=== PATIENT | male | born 1975 | race African-American/Black ===

== ENCOUNTER 2017-09-03 09:33 | Emergency (ER) | payer SELFPAY ==
--- NOTE | 2017-09-03 10:42 | Emergency Department Report ---
ED ENT HPI - General Chief complaint: Earache Stated complaint: FOREIGN BODY LEFT EAR Time Seen by Provider: 09/03/17 10:27 Source: patient Mode of arrival: Ambulatory Limitations: No Limitations - History of Present Illness Initial comments: 42-year-old male past medical history none presents with complaint of one week of left ear pain. Patient states he felt an insect go into his ear last week. Has been complaining of persistent pain in his left ear since. No fever or chills reported. Slight decreased hearing in left ear reported. No purulent discharge reported. Patient states he has been picking at his ear for nearly a week. MD complaint: ear pain, foreign body Onset/Timin -: week(s) Location: L ear Severity: moderate Severity scale (0 -10): 7 Quality: aching Worsens with: none - Related Data Previous Rx's Medication Instructions Recorded Last Taken Type Acetaminophen/Codeine [Tylenol 1 tab PO Q6H PRN #15 tab 09/03/17 Unknown Rx /Codeine # 3 tab] Amoxicillin/K Clav Tab [Augmentin 1 tab PO Q12HR #14 tab 09/03/17 Unknown Rx 875 mg] Ibuprofen [Motrin] 800 mg PO Q8HR PRN #20 tablet 09/03/17 Unknown Rx Neomy/Polymyx B/Hc (Otic) Soln 4 drops OTIC TID #1 bottle 09/03/17 Unknown Rx [Cortisporin (Otic) Soln] Allergies Allergy/AdvReac Type Severity Reaction Status Date / Time No Known Allergies Allergy Unverified 09/03/17 09:42 ED Dental HPI - General Chief complaint: Earache Stated complaint: FOREIGN BODY LEFT EAR Time Seen by Provider: 09/03/17 10:27 Source: patient Mode of arrival: Ambulatory Limitations: No Limitations - Related Data Previous Rx's Medication Instructions Recorded Last Taken Type Acetaminophen/Codeine [Tylenol 1 tab PO Q6H PRN #15 tab 09/03/17 Unknown Rx /Codeine # 3 tab] Amoxicillin/K Clav Tab [Augmentin 1 tab PO Q12HR #14 tab 09/03/17 Unknown Rx 875 mg] Ibuprofen [Motrin] 800 mg PO Q8HR PRN #20 tablet 09/03/17 Unknown Rx Neomy/Polymyx B/Hc (Otic) Soln 4 drops OTIC TID #1 bottle 09/03/17 Unknown Rx [Cortisporin (Otic) Soln] Allergies Allergy/AdvReac Type Severity Reaction Status Date / Time No Known Allergies Allergy Unverified 09/03/17 09:42 ED Review of Systems ROS: Stated complaint: FOREIGN BODY LEFT EAR Other details as noted in HPI Constitutional: denies: chills, fever Eyes: denies: eye pain, eye discharge, vision change ENT: ear pain. denies: throat pain Respiratory: denies: cough, shortness of breath, wheezing Cardiovascular: denies: chest pain, palpitations Endocrine: no symptoms reported Gastrointestinal: denies: abdominal pain, nausea, diarrhea Genitourinary: denies: urgency, dysuria Musculoskeletal: denies: back pain, joint swelling, arthralgia Skin: denies: rash, lesions Neurological: denies: headache, weakness, paresthesias Psychiatric: denies: anxiety, depression Hematological/Lymphatic: denies: easy bleeding, easy bruising ED Past Medical Hx - Past Medical History Previous Medical History?: No - Surgical History Past Surgical History?: No - Social History Smoking Status: Never Smoker Substance Use Type: None - Medications Home Medications: Home Medications Medication Instructions Recorded Confirmed Last Taken Type Acetaminophen/Codeine [Tylenol 1 tab PO Q6H PRN #15 tab 09/03/17 Unknown Rx /Codeine # 3 tab] Amoxicillin/K Clav Tab [Augmentin 1 tab PO Q12HR #14 tab 09/03/17 Unknown Rx 875 mg] Ibuprofen [Motrin] 800 mg PO Q8HR PRN #20 tablet 09/03/17 Unknown Rx Neomy/Polymyx B/Hc (Otic) Soln 4 drops OTIC TID #1 bottle 09/03/17 Unknown Rx [Cortisporin (Otic) Soln] ED Physical Exam - General Limitations: No Limitations General appearance: alert, in no apparent distress - Head Head exam: Present: atraumatic, normocephalic - Eye Eye exam: Present: normal appearance - ENT ENT exam: Present: mucous membranes moist - Expanded ENT Exam Expanded TM/Canal exam: Erythema: Left TM (partial obstruction of left ear canal on inspection. Visualized insect-like or foreign body. Significant swelling of external ear canal are ear canal is patent. No clinical mastoiditis on exam), Bulging: Left TM, Effusion: Left TM, Loss of Landmarks: Left TM, Foreign Body: Left TM, Canal Discharge: Left TM, Canal Tenderness: Left TM - Neck Neck exam: Present: normal inspection - Respiratory Respiratory exam: Present: normal lung sounds bilaterally. Absent: respiratory distress - Cardiovascular Cardiovascular Exam: Present: regular rate, normal rhythm. Absent: systolic murmur, diastolic murmur, rubs, gallop - GI/Abdominal GI/Abdominal exam: Present: soft, normal bowel sounds - Rectal Rectal exam: Present: deferred - Extremities Exam Extremities exam: Present: normal inspection - Back Exam Back exam: Present: normal inspection - Neurological Exam Neurological exam: Present: alert, oriented X3, CN II-XII intact, normal gait - Psychiatric Psychiatric exam: Present: normal affect, normal mood - Skin Skin exam: Present: warm, dry, intact, normal color. Absent: rash ED Course Vital Signs 09/03/17 09:42 Temperature 97.7 F Pulse Rate 76 Respiratory 18 Rate Blood Pressure 133/89 O2 Sat by Pulse 96 Oximetry ED Medical Decision Making - Medical Decision Making A/P: Otitis media, otitis externa, foreign body left ear insect 1-as foreign body is directly overlying left eardrum is to deep for me to remove at this time. Has been an left ear for over one week as per patient. No clinical signs of mastoiditis at this time. Patient's hearing is still intact. 2-I informed patient it is imperative that he follow up with [facility]. Patient stated that he would do so. 3-Corticosporin topical, Augmentin 10 day course, Motrin when necessary 4-patient provided with multiple ENT referrals [email or web address] Critical care attestation.: If time is entered above; I have spent that time in minutes in the direct care of this critically ill patient, excluding procedure time. ED Disposition Clinical Impression: Otitis media Qualifiers: Otitis media type: suppurative Chronicity: acute Laterality: left Recurrence: not specified as recurrent Spontaneous tympanic membrane rupture: without spontaneous rupture Qualified Code(s): H66.002 - Acute suppurative otitis media without spontaneous rupture of ear drum, left ear Foreign body of ear, left Qualifiers: Encounter type: initial encounter Qualified Code(s): T16.2XXA - Foreign body in left ear, initial encounter Disposition: DC-01 TO HOME OR SELFCARE Is pt being admited?: No Does the pt Need Aspirin: No Condition: Stable Instructions: Otitis Externa (ED), Ear Foreign Body (ED), Otitis Media (ED) Additional Instructions: [email or web address] Prescriptions: Acetaminophen/Codeine [Tylenol /Codeine # 3 tab] 1 tab PO Q6H PRN #15 tab PRN Reason: Pain Amoxicillin/K Clav Tab [Augmentin 875 mg] 1 tab PO Q12HR #14 tab Ibuprofen [Motrin] 800 mg PO Q8HR PRN #20 tablet PRN Reason: Pain Neomy/Polymyx B/Hc (Otic) Soln [Cortisporin (Otic) Soln] 4 drops OTIC TID #1 bottle Referrals: [facility] [Outside] - 3-[address] [facility] [Provider Group] - 3-5 Days [facility]NT [facility] [Provider Group] - 3-5 Days MAURO SHEFFIELD MD [Staff Physician] - 3-5 Days ELEUTERIO CROOK MD [Staff Physician] - 3-5 Days Forms: Accompanied Note, Work/School Release Form(ED) Time of Disposition: 10:43
[2017-09-03] MEDS ORDERED: MOTRIN PO ONE (10:47)
[2017-09-03] MEDS ORDERED: AUGMENTIN 875 MG PO ONE (10:47)
[2017-09-03 11:02] VITALS: BP 130/84
== END 2017-09-03 11:01 | disposition home or self-care (01) ==
LOC: ED 09:33
DX: H66.002 Acute suppurative otitis media without spontaneous rupture of ear drum, left ear (principal)
CPT/HCPCS: 99282